=== PATIENT | male | born 1970 | race Asian ===

== ENCOUNTER 2020-10-04 10:06 | Emergency (ER) | payer OTHER, SELFPAY ==
--- NOTE | ~2020-10-04 | XR_ITS ---
EXAMINATION: RIGHT SHOULDER, RIGHT ELBOW AND RIGHT HAND AND WRIST CLINICAL INFORMATION: Fall COMPARISON: None TECHNIQUE: 4 views of the right shoulder, 3 views of the right elbow and 4 views of the right hand and wrist FINDINGS: Right shoulder: Bone alignment is normal. No fracture or dislocation is seen. The glenohumeral joint is normal. There is mild arthritis at the acromioclavicular joint. Soft tissues are normal. Right elbow: Bone alignment is normal. No fracture or dislocation is seen. Joint spaces are normal. There is no joint effusion. There is a small osteophyte or thymic lesion seen at the lateral humeral condyle. Right hand and wrist: Bone alignment is normal. No acute fracture or dislocation is seen. There is a well-corticated ossification adjacent to the ulnar styloid, question representing an old ununited fracture versus accessory ossification center The joint spaces are normal. XR/XR shoulder RT min 2V IMPRESSION: No acute fracture or dislocation seen.
--- NOTE | ~2020-10-04 | CT_ITS ---
EXAMINATION: CT HEAD WITHOUT CONTRAST CLINICAL INFORMATION: Fall, right arm numbness. COMPARISON: None TECHNIQUE: Contiguous axial imaging was performed from the skull base to vertex without intravenous administration of contrast. Additional 2-D coronal and sagittal reformatted images are generated on the CT workstation and uploaded to PACS. This CT examination was performed using dose optimization techniques as appropriate, variously including the following: *Automated exposure control *Adjustment of mA and/or kV according to patient size (this includes techniques or standardized protocols for targeted exams where dose is matched to indication/reason for exam; i.e. extremities or head) *Use of iterative reconstruction technique DLP: 695 mGy-cm FINDINGS: There is no intracranial hemorrhage, hematoma, or extra-axial fluid collection. The ventricles are normal in size. There is no hydrocephalus, edema, or mass effect. The mccann-white matter differentiation appears symmetric. There is no visible acute territorial infarct or mass lesion. The calvarium appears intact. There is no pneumocephalus or orbital emphysema. The visualized sinuses and middle ears and mastoid air cells show no significant mucosal thickening. There are no air-fluid levels. CT/CT head/brain wo con IMPRESSION: Unremarkable noncontrast CT head.
--- NOTE | ~2020-10-04 | XR_ITS ---
EXAMINATION: RIGHT SHOULDER, RIGHT ELBOW AND RIGHT HAND AND WRIST CLINICAL INFORMATION: Fall COMPARISON: None TECHNIQUE: 4 views of the right shoulder, 3 views of the right elbow and 4 views of the right hand and wrist FINDINGS: Right shoulder: Bone alignment is normal. No fracture or dislocation is seen. The glenohumeral joint is normal. There is mild arthritis at the acromioclavicular joint. Soft tissues are normal. Right elbow: Bone alignment is normal. No fracture or dislocation is seen. Joint spaces are normal. There is no joint effusion. There is a small osteophyte or thymic lesion seen at the lateral humeral condyle. Right hand and wrist: Bone alignment is normal. No acute fracture or dislocation is seen. There is a well-corticated ossification adjacent to the ulnar styloid, question representing an old ununited fracture versus accessory ossification center The joint spaces are normal. XR/XR hand wrist RT IMPRESSION: No acute fracture or dislocation seen.
--- NOTE | ~2020-10-04 | XR_ITS ---
EXAMINATION: RIGHT SHOULDER, RIGHT ELBOW AND RIGHT HAND AND WRIST CLINICAL INFORMATION: Fall COMPARISON: None TECHNIQUE: 4 views of the right shoulder, 3 views of the right elbow and 4 views of the right hand and wrist FINDINGS: Right shoulder: Bone alignment is normal. No fracture or dislocation is seen. The glenohumeral joint is normal. There is mild arthritis at the acromioclavicular joint. Soft tissues are normal. Right elbow: Bone alignment is normal. No fracture or dislocation is seen. Joint spaces are normal. There is no joint effusion. There is a small osteophyte or thymic lesion seen at the lateral humeral condyle. Right hand and wrist: Bone alignment is normal. No acute fracture or dislocation is seen. There is a well-corticated ossification adjacent to the ulnar styloid, question representing an old ununited fracture versus accessory ossification center The joint spaces are normal. XR/XR elbow RT min 3V IMPRESSION: No acute fracture or dislocation seen.
--- NOTE | ~2020-10-04 | CT_ITS ---
EXAMINATION: CT CERVICAL SPINE WITHOUT CONTRAST CLINICAL INFORMATION: Fall, trauma, right arm numbness. COMPARISON: CT head noncontrast 10/04/2020. TECHNIQUE: Multidetector volumetric CT imaging of the cervical spine is performed without contrast in the axial plane. Additional 2D reformatted coronal and sagittal images are generated on the CT workstation and uploaded to PACS. This CT examination was performed using dose optimization techniques as appropriate, variously including the following: *Automated exposure control *Adjustment of mA and/or kV according to patient size (this includes techniques or standardized protocols for targeted exams where dose is matched to indication/reason for exam; i.e. extremities or head) *Use of iterative reconstruction technique DLP: 424 mGy-cm FINDINGS: There is no vertebral compression fracture, fracture line, spondylolisthesis, or prevertebral soft tissue swelling. The craniocervical junction appears normal. The odontoid appears intact. There is mild reversal upper to mid cervical lordosis. There are multilevel degenerative disc changes from C3 to C4 through C6-C7. There is bulky anterior bridging osteophyte at C5-C6. There is no apical pneumothorax. CT/CT cervical spine wo con IMPRESSION: 1. No acute bony abnormality or prevertebral soft tissue swelling. 2. Mild reversal cervical lordosis. Multilevel degenerative changes. Bulky anterior bridging osteophyte C5-C6.
[2020-10-04 10:56] VITALS: BP 120/72; PULSE 96; RESP 14; TEMP 36.8; O2SAT 99; BMI 23.5
--- NOTE | 2020-10-04 11:09 | ED_ITS ---
HPI - Extremity Problem General Chief complaint: Extremity Injury, Upper Stated complaint: shoulder/elbow/wrist injury- work related Time Seen by Provider: 10/04/20 11:03 Source: patient Mode of arrival: ambulatory Limitations: no limitations History of Present Illness HPI Narrative: 49yoM Related Data Allergies Allergy/AdvReac Type Severity Reaction Status Date / Time No Known Allergies Allergy Verified 10/04/20 10:54 [facility] Past Medical History Medical History (Updated 10/04/20 @ 10:58 by Kelly Anguiano) No known health problems Social History Social History Smoking Status: Current some day smoker Smoked in Last 30 Days: Yes Use of substances other than those prescribed or required for medical reasons: No Advance Directives: No Advance Directives Information Provided: No Physical Exam Vital Signs: Vital Signs: Last Vital Signs Temp 98.2 F 10/04/20 10:56 Pulse 96 10/04/20 10:56 Resp 14 10/04/20 10:56 BP 120/72 10/04/20 10:56 Pulse Ox 99 10/04/20 10:56 Body Mass Index 23.5
--- NOTE | 2020-10-04 11:17 | ED_ITS ---
HPI - Extremity Injury (Upper) General Chief Complaint: Extremity Injury, Upper Stated Complaint: shoulder/elbow/wrist injury- work related Time Seen by Provider: 10/04/20 11:03 Source: patient Mode of arrival: ambulatory Limitations: no limitations History of Present Illness HPI narrative: 49 year old male with no significant past medical history presenting to the ED after slipping and falling on ice hitting the cement landing on his right side while at work prior to arrival now with pain to right shoulder/right elbow/right forearm/right wrist and hand and he reports associated numbness to the 4th and 5th digit going up the ulnar aspect of the arm to the elbow. Denies head injury or loss of consciousness. Denies any symptoms prior to the fall. Denies any dizziness, headaches, neck pain/stiffness, chest pain, palpitations, shortness of breath or any other symptoms complaints or concerns at this time. 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) Severity: moderate Relieving factors: rest Exacerbating factors: movement of extremity Context: fall Associated symptoms: numbness Treatments prior to arrival: other (none) Related Data Previous Rx's Medication Instructions Recorded naproxen 500 mg PO BID PRN #10 tab 10/04/20 prednisone 40 mg PO DAILY 5 Days #10 tab 10/04/20 Allergies Allergy/AdvReac Type Severity Reaction Status Date / Time No Known Allergies Allergy Verified 10/04/20 10:54 Review of Systems Review of Systems: Constitutional : No changes in activity, No lethargy, No recent prior head injury, No agitation ENT/Mouth : No Ear Pain, No Nasal discharge/drainage Eyes: No Eye Pain, No Swelling, No Redness, No Foreign Body, No Vision Changes Cardiovascular : No Chest Pain, No SOB Respiratory : No Cough Gastrointestinal : No Nausea, No Vomiting, No abdominal Pain Genitourinary : No Dysuria, No Urinary Frequency, No Urinary Incontinence, No Urgency, No Flank Pain Musculoskeletal : + joint pain, No neck stiffness, No back pain/injury Skin : No lacerations Neuro : + Numbness, No unsteady gait, No Paresthesias, No Loss of Consciousness, No altered mental status, No Headache Yes all other systems are reviewed and are negative PMFSH Past Medical History Attestation statement: The following information was validated with the patient. Medical History No known health problems Social History Social History Smoking Status: Current some day smoker Smoked in Last 30 Days: Yes Use of substances other than those prescribed or required for medical reasons: No Advance Directives: No Advance Directives Information Provided: No Physical Exam Vital Signs: Vital Signs: Last Vital Signs Temp 98.2 F 10/04/20 10:56 Pulse 96 10/04/20 10:56 Resp 14 10/04/20 10:56 BP 120/72 10/04/20 10:56 Pulse Ox 99 10/04/20 10:56 Body Mass Index 23.5 vital signs have been reviewed as normal and appeared to be correct. Blood pressure normal. Heart rate normal. Respiration rate normal. Temperature normal. Oxygen saturation normal. Appearance: Alert. Oriented X3. No acute distress. Head: Normal external exam. Normocephalic. Atraumatic. No Solorzano signs noted. No raccoon eyes noted Eyes: PERRLA. EOMI. Conjunctiva and sclera normal. Eyelids normal. ENT: EAC normal. TM's Normal. Pharynx normal. Uvula midline. Moist mucous membranes. No trismus noted. No drooling noted. No muffled voice noted. Neck: Normal inspection. Neck supple. FROM. No adenopathy. Thyroid Normal. No meningeal signs. No neck mass noted. CVS: Normal heart rate and rhythm. Heart sound normal. No murmurs noted. Pulses normal throughout. Respiratory: No respiratory distress. Painless inspiration. Breath sounds normal. No wheezes/rales/rhonchi noted. Chest nontender. No accessory muscle usage noted or decreased air movement noted. Back: No CVA tenderness. Full range of motion noted. Skin: Skin warm and dry. Normal skin color. Normal skin turgor. No rashes/les ions/lacerations noted. Extremities: To right shoulder patient has mild tenderness to palpation at the AC joint and posteriorly. To right elbow patient is tender to palpation at the olecranon process. To right wrist/hand patient tender to palpation to ulnar aspect of the wrist and tenderness to palpation of last 2 digits. No obvious deformities noted to right shoulder/elbow/wrist/hand. Otherwise all other Extremities exhibit normal range of motion and nontender. Neuro: Oriented X 3. No motor deficit. No sensory deficit. Reflexes normal. Moving all extremities. No focal motor deficits. Cranial nerves II-XI intact bilaterally. Facial strength normal. Normal cognition. Speech normal. Gait normal. Strength 5/5 throughout. No pronator drift. No tremor noted. No fasciculations noted. No rigidity noted. Muscle tone normal throughout. No asterixis noted Course Course Course Narrative: 49 year old male with no significant past medical history presenting to the ED after slipping and falling on ice hitting the cement landing on his right side while at work prior to arrival now with pain to right shoulder/right elbow/right forearm/right wrist and hand and he reports associated numbness to the 4th and 5th digit going up the ulnar aspect of the arm to the elbow. - on exam patient has mild tenderness to palpation to right shoulder/right elbow/right hand and wrist. No obvious deformities noted. - due to patient reporting right arm numbness at the last 2 digits of the hand following the ulnar aspect up to the elbow although no tenderness to palpation to mid cervical or paracervical musculature. - will obtain a CT scan of brain/cervical spine, x-rays right shoulder/elbow/h and and wrist, I offered the patient symptomatic treatment although he declined at this time will re-evaluate. Procedures Orthopedic Splinting/Casting Injury #1: Side: right Upper Extremity Injury Location: upper arm Upper Extremity Immobilizer: sling/shoulder immobilizer MDM - Extremity Injury (Upper) Medical Records Attestation: I reviewed the patient's medical records. Imaging Data Right shoulder/right elbow/right hand and wrist x-rays: Attestation: I personally reviewed and interpreted this imaging study as follows: Radiologist's impression: FINDINGS: Right shoulder: Bone alignment is normal. No fracture or dislocation is seen. The glenohumeral joint is normal. There is mild arthritis at the acromioclavicular joint. Soft tissues are normal. Right elbow: Bone alignment is normal. No fracture or dislocation is seen. Joint spaces are normal. There is no joint effusion. There is a small osteophyte or thymic lesion seen at the lateral humeral condyle. Right hand and wrist: Bone alignment is normal. No acute fracture or dislocation is seen. There is a well-corticated ossification adjacent to the ulnar styloid, question representing an old ununited fracture versus accessory ossification center The joint spaces are normal. XR/XR elbow RT min 3V IMPRESSION: No acute fracture or dislocation seen. CT scan of brain without contrast: Attestation: I personally reviewed and interpreted this imaging study as follows: Radiologist's impression: FINDINGS: There is no intracranial hemorrhage, hematoma, or extra-axial fluid collection. The ventricles are normal in size. There is no hydrocephalus, edema, or mass effect. The mccann-white matter differentiation appears symmetric. There is no visible acute territorial infarct or mass lesion. The calvarium appears intact. There is no pneumocephalus or orbital emphysema. The visualized sinuses and middle ears and mastoid air cells show no significant mucosal thickening. There are no air-fluid levels. CT/CT head/brain wo con IMPRESSION: Unremarkable noncontrast CT head. Cervical spine CT: Attestation: I personally reviewed and interpreted this imaging study as follows: Radiologist's impression: FINDINGS: There is no intracranial hemorrhage, hematoma, or extra-axial fluid collection. The ventricles are normal in size. There is no hydrocephalus, edema, or mass effect. The mccann-white matter differentiation appears symmetric. There is no visible acute territorial infarct or mass lesion. The calvarium appears intact. There is no pneumocephalus or orbital emphysema. The visualized sinuses and middle ears and mastoid air cells show no significant mucosal thickening. There are no air-fluid levels. CT/CT head/brain wo con IMPRESSION: Unremarkable noncontrast CT head. Discharge Plan Discharge Clinical Impression: Sprain and strain of wrist, Tingling of right upper extremity, Sprain and strain of right hand, Work related injury Sprain of right shoulder Qualifiers: Encounter type: initial encounter Shoulder sprain type: unspecified sprain Qualified Code(s): S43.401A - Unspecified sprain of right shoulder joint, initial encounter Sprain of right elbow Qualifiers: Encounter type: initial encounter Qualified Code(s): S53.401A - Unspecified sprain of right elbow, initial encounter Fall from slipping on ice Qualifiers: Encounter type: initial encounter Qualified Code(s): W00.9XXA - Unspecified fall due to ice and snow, initial encounter Patient Disposition: Home, Self-Care Instructions: Sprain (ED), How to Use a Sling (ED), Fall Prevention (ED) Prescriptions: New prednisone 20 mg tablet 40 mg PO DAILY 5 Days Qty: 10 RF: 0 naproxen 500 mg tablet 500 mg PO BID PRN (Reason: pain) Qty: 10 RF: 0 Referrals: Shu Silva MD [Physician] - 2 weeks (If symptoms persist) Jazzy Medellin PA [Physician Equity Sales Assistant] - 2 days (work connection for your job work related injury ) Stand Alone Forms: Work/School Release Print Language: [place]
== END 2020-10-04 12:50 | disposition home or self-care (01) ==
PROVIDERS: Emergency Provider Emergency Medicine
DX: S63.501A Unspecified sprain of right wrist, initial encounter (principal); S66.911A Strain of unspecified muscle, fascia and tendon at wrist and hand level, right hand, initial encounter; R20.2 Paresthesia of skin; S63.91XA Sprain of unspecified part of right wrist and hand, initial encounter; S43.401A Unspecified sprain of right shoulder joint, initial encounter; S53.401A Unspecified sprain of right elbow, initial encounter; W00.0XXA Fall on same level due to ice and snow, initial encounter; F17.200 Nicotine dependence, unspecified, uncomplicated; Y93.89 Activity, other specified; Y92.9 Unspecified place or not applicable; Y99.0 Civilian activity done for income or pay
CPT/HCPCS: 70450; 72125; 73030; 73080; 73110; 73130; 99283; 99284

== ENCOUNTER → 2020-10-06 09:32 | Outpatient (BNVA) | payer OTHER, SELFPAY | PROVIDERS: Visit Provider Physician Assistant Medical | DX: S46.911A Strain of unspecified muscle, fascia and tendon at shoulder and upper arm level, right arm, initial encounter (principal); S66.911A Strain of unspecified muscle, fascia and tendon at wrist and hand level, right hand, initial encounter; S50.01XA Contusion of right elbow, initial encounter; W01.0XXA Fall on same level from slipping, tripping and stumbling without subsequent striking against object, initial encounter; G56.00 Carpal tunnel syndrome, unspecified upper limb | CPT/HCPCS: 99202; 99213 ==

== ENCOUNTER → 2020-10-13 10:11 | Outpatient (BNVA) | payer OTHER, SELFPAY | PROVIDERS: Visit Provider Physician Assistant Medical | DX: S69.81XA Other specified injuries of right wrist, hand and finger(s), initial encounter (principal); W01.0XXA Fall on same level from slipping, tripping and stumbling without subsequent striking against object, initial encounter; R20.2 Paresthesia of skin | CPT/HCPCS: 99213 ==

== ENCOUNTER 2020-10-20 09:29 | Outpatient (REF) | payer OTHER, SELFPAY ==
--- NOTE | ~2020-10-20 | MR_ITS ---
EXAMINATION: MR WRIST WITHOUT CONTRAST, RIGHT CLINICAL INFORMATION: Fall, pain, limited range of motion, paresthesias COMPARISON: X-ray 10/04/2020 TECHNIQUE: MRI of the wrist was performed using routine sequences on a high-field scanner. FINDINGS: BONE/JOINTS: Small ossification adjacent to the ulnar styloid process, without evidence of marrow edema, which may be related to old fracture versus accessory ossification center. Mild scaphoid-trapezium arthritis, with mild edema in the distal scaphoid. Scattered mild arthritic changes, such as small cyst/edema in the proximal capitate, proximal hamate, pisiform. No evidence of no acute fracture. 13 x 8 x 3 mm (long, transverse, AP) cystic focus along the volar radial aspect at the level of the scaphoid, probable ganglion cyst. MUSCLE/TENDONS: Tendons are intact. No evidence of tenosynovitis. LIGAMENTS: Increased signal in the scapholunate ligament, appearing degenerative. Mild fraying of the dorsal and volar components of the ligament. Degeneration and proximal surface partial tearing in the triangular fibrocartilage, and the volar radioulnar ligament, with increased signal extending to the proximal surface. Increased signal in the dorsal radioulnar ligament, which may be degenerative versus intrasubstance tearing.. There is increased signal and ill-definition of the ulnar attachments of the TFCC, which could reflect sprain or partial tear. There is mild edema in the ulna styloid process. MEDIAN NERVE: Within normal limits. MR/MR wrist RT wo con IMPRESSION: 1. Mild arthritis in the wrist joint, including mild scaphoid-trapezium arthritis, as detailed above. 2. Chronic appearing ossification adjacent to the ulna styloid process, which may be related to old trauma versus accessory ossification center. No acute fracture is seen. 3. Cyst measuring 13 x 8 x 3 mm along the volar radial aspect at the level of the scaphoid, probable ganglion cyst. 4. Scapholunate ligament degeneration with fraying. 5. Findings raise concern for degeneration and proximal surface partial tearing in the triangular fibrocartilage and the volar radioulnar ligament. Signal in the dorsal radioulnar ligament may be degenerative versus intrasubstance tearing. Findings in the ulnar attachments of the TFCC may reflect sprain or partial tearing. Mild ulnar styloid process edema.
== END 2020-10-20 09:30 | disposition home or self-care (01) ==
LOC: HO.MRI 09:29
PROVIDERS: Visit Provider Internal Medicine
DX: M25.531 Pain in right wrist (principal)
CPT/HCPCS: 73221

== ENCOUNTER → 2020-10-25 08:32 | Outpatient (BNVA) | payer OTHER, SELFPAY | PROVIDERS: Visit Provider Orthopaedic Surgery | DX: R20.0 Anesthesia of skin (principal); R20.2 Paresthesia of skin; M25.531 Pain in right wrist | CPT/HCPCS: 99202 ==

== ENCOUNTER 2020-11-25 09:07 | Outpatient (REF) | payer OTHER, SELFPAY ==
--- NOTE | 2020-11-25 09:15 | EMG_ITS ---
Right median and ulnar motor and sensory studies were performed. Right radial sensory study was performed and paraspinal muscles were tested with a needle. IMPRESSION: Mild right ulnar neuropathy across cubital tunnel. MD JEAN-PIERRE Maki/CORKY / [id number]
== END 2020-11-25 09:08 | disposition home or self-care (01) ==
LOC: HO.NEURO 09:07
PROVIDERS: PCP Internal Medicine; Visit Provider Physician Assistant Medical
DX: M25.531 Pain in right wrist (principal)
CPT/HCPCS: 95886; 95909

== ENCOUNTER → 2020-12-07 08:50 | Outpatient (BNVA) | payer OTHER, SELFPAY | PROVIDERS: PCP Internal Medicine; Visit Provider Orthopaedic Surgery | DX: G56.21 Lesion of ulnar nerve, right upper limb (principal); M25.531 Pain in right wrist | CPT/HCPCS: 99212 ==

== ENCOUNTER → 2021-01-19 09:09 | Outpatient (BNVA) | payer OTHER, SELFPAY | PROVIDERS: Visit Provider Orthopaedic Surgery | DX: G56.21 Lesion of ulnar nerve, right upper limb (principal); M25.531 Pain in right wrist | CPT/HCPCS: 99212 ==

== ENCOUNTER 2021-01-27 10:54 | Day surgery (SDC) | payer OTHER, SELFPAY ==
--- NOTE | 2020-12-28 10:17 | P.CONAN_ITS ---
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
--- NOTE | 2021-01-26 09:48 | P.CONAN_ITS ---
Documented by User: Joanne Murphy 01/31/21 15:35 HPI - Anesthesia Eval Consult details Narrative: 50yo M for Right Transposition Cubital Tunnel Release PMFSH Active Problems Active Problems: All Active Problems (Updated 12/07/20 @ 10:05 by Karen Alvarez MD) Cubital tunnel syndrome on right (Acute) Right wrist pain (Acute) Numbness and tingling in right hand (Acute) Past Medical History Medical History No known health problems Surgical History Surgical History (Updated 01/27/21 @ 11:39 by Jackelyn Wren, RN) Hx of left knee surgery Social History Social History (Updated 01/19/21 @ 09:47 by Cathie Langley) Patient Tobacco Use Status: Current everyday Tobacco user Cigarettes Per Day: 3 Current occupational status: employed 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 Allergies Allergy/AdvReac Type Severity Reaction Status Date / Time No Known Allergies Allergy Verified 01/27/21 11:39 Exam Exam Date and Time: January 26, 2021 0948 Assessment and Plan Assessment Anesthesia Assessment: Chart Reviewed Documented by User: Dusty Craig MD 02/02/21 10:34 PMFSH Past Medical History Medical History No known health problems Surgical History Surgical History (Updated 01/27/21 @ 11:39 by Jackelyn Wren, RN) Hx of left knee surgery Social History Social History (Updated 01/19/21 @ 09:47 by Cathie Langley) Patient Tobacco Use Status: Current everyday Tobacco user Cigarettes Per Day: 3 Current occupational status: employed 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
[2021-01-27] VITALS (8 sets, daily range): BP systolic 97–114; BP diastolic 50–67; PULSE 73–95; RESP 15–20; TEMP 36.2–36.3; O2SAT 94–98; BMI 23.5
--- NOTE | 2021-01-27 12:46 | PC.NURSE ---
FRESH KITTEN SCRATCH TO RT UPPER ARM FROM YESTERDAY. [address] JACKSON. SPOKE WITH MD OVER PHONE AND STATED TO PROCEED WITH IV PLACEMENT . OK TO PROCEED WITH SURGERY AT PRESENT BUT WILL EVALUATE AT BEDSIDE AGAIN.
[2021-01-27] MEDS: Lactated Ringers 1,000 ML 100 ML IVCONT (12:49)
--- NOTE | 2021-01-27 14:40 | MHC.SHP ---
Pre-Procedural Eval Section B Chief Complaint: Right cubital tunnel syndrome Allergies: Allergies Allergy/AdvReac Type Severity Reaction Status Date / Time No Known Allergies Allergy Verified 01/27/21 11:39 Plan I have reviewed the history and physical and performed a pertinent physical examination on my patient. No changes have occurred unless specified.
--- NOTE | 2021-01-27 14:41 | W.PM.OPN ---
Operative Note Operative Note Date of Service: 01/27/21 Narrative: Operative Note Narrative: Preop diagnosis: 1. Right Cubital tunnel syndrome with dense numbness Postop diagnosis: Same Procedure: 1. Right Cubital Tunnel Release Surgeon: Karen Alvarez MD Anesthesia: General Findings: Thickening about the ulnar nerve with an hourglass deformity at the cubital tunnel Implants: none Tourniquet time: 16 minutes EBL: 5.0 ml Specimen: none Drains: None Complications: None Disposition: Brought to the recovery room in stable condition Plan: Follow-up in 10-14 days for wound check, and suture removal Indications: The patient is 50 years old man with right cubital tunnel syndrome with dense numbness . The risks and benefits of operative treatment, including but not limited to risk of damage to blood vessels, nerves, tendons, infection, recurrence, persistent pain or numbness, incomplete resolution of preoperative symptoms, or need for further surgery were discussed with the patient and they wished to proceed with surgery. Procedure: Once consent was obtained patient was brought back to the operating suite and placed in the operating table in a supine position. Perioperative antibiotics and anesthesia was administered by the anesthesia team. The limb was prepped and draped in a standard surgical fashion, and a sterile tourniquet applied to the proximal aspect of the right upper extremity. The limb was elevated exsanguinated with Esmarch bandage and the tourniquet inflated to 250 mm of mercury for a total tourniquet time of 16 minutes. A 6 cm gently curved but longitudinally oriented incision was made centered over the cubital tunnel of the right upper extremity. Incision was made through the skin to the subcutaneous tissues using a # 15 Blade. I then dissected down to the level of the medial epicondyle and the cubital tunnel using tenotomy scissors. Care was taken to protect the lateral antebrachial cutaneous nerve. The ulnar nerve was identified just posterior to the medial intermuscular septum. Small vessel loop was passed behind the ulnar nerve and used to apply gentle traction to facilitate our release. The ulnar nerve was released in a proximal to distal direction using tenotomy in iris scissors while directly visualizing and protecting the ulnar nerve. Thickening was appreciated about the ulnar nerve as it passed through the cubital tunnel. There was also some narrowing of the ulnar nerve within the cubital tunnel. The ulnar nerve was assessed as I passed the elbow through full flexion and extension and was found to remain stable within its groove. At this point the tourniquet was deflated and hemostasis obtained with a brief period of local pressure and bipolar electrocautery. The wound was copiously irrigated with normal saline. The subcutaneous layer was closed with 4-0 Vicryl suture, and the skin edges were reapproximated with 5-0 nylon suture. The wound was infiltrated with some 1% lidocaine with epinephrine for postop pain control and sterile dressings and a posterior splint was applied. The patient appears to have tolerated the procedure well and with no complications. All digits were well vascularized conclusion of the case.
== END 2021-01-27 15:55 | disposition home or self-care (01) ==
PROVIDERS: Visit Provider Orthopaedic Surgery
PROC: (CPT 64718; principal; 2021-01-27 13:10)
DX: G56.21 Lesion of ulnar nerve, right upper limb (principal); F17.210 Nicotine dependence, cigarettes, uncomplicated; M25.531 Pain in right wrist; Z87.828 Personal history of other (healed) physical injury and trauma; Z91.81 History of falling
CPT/HCPCS: 64718; J0690; J1100; J2250; J2405; J3010

== ENCOUNTER → 2021-02-07 09:24 | Outpatient (BNVA) | payer OTHER, SELFPAY | PROVIDERS: Visit Provider Orthopaedic Surgery | DX: G56.21 Lesion of ulnar nerve, right upper limb (principal); M25.531 Pain in right wrist | CPT/HCPCS: 99212 ==

== ENCOUNTER → 2021-03-21 10:41 | Outpatient (BNVA) | payer OTHER, SELFPAY | PROVIDERS: Visit Provider Orthopaedic Surgery | DX: G56.21 Lesion of ulnar nerve, right upper limb (principal) | CPT/HCPCS: 99212 ==

== ENCOUNTER → 2021-04-27 09:26 | Outpatient (BNVA) | payer OTHER, SELFPAY | PROVIDERS: Visit Provider Orthopaedic Surgery | DX: G56.21 Lesion of ulnar nerve, right upper limb (principal); M25.531 Pain in right wrist | CPT/HCPCS: 99212 ==

== ENCOUNTER → 2021-05-25 09:16 | Outpatient (BNVA) | payer OTHER, SELFPAY | PROVIDERS: Visit Provider Orthopaedic Surgery | DX: G56.21 Lesion of ulnar nerve, right upper limb (principal); R20.0 Anesthesia of skin; R20.2 Paresthesia of skin; F17.210 Nicotine dependence, cigarettes, uncomplicated | CPT/HCPCS: 99212 ==

== ENCOUNTER → 2021-06-29 09:44 | Outpatient (BNVA) | payer OTHER, SELFPAY | PROVIDERS: Visit Provider Physician Assistant | DX: G56.21 Lesion of ulnar nerve, right upper limb (principal) | CPT/HCPCS: 99212 ==

== ENCOUNTER → 2021-09-07 10:23 | Outpatient (BNVA) | payer OTHER, SELFPAY | PROVIDERS: Visit Provider Physician Assistant | DX: Z48.811 Encounter for surgical aftercare following surgery on the nervous system (principal) | CPT/HCPCS: 99212 ==

== ENCOUNTER → 2021-10-19 09:39 | Outpatient (BNVA) | payer OTHER, SELFPAY | PROVIDERS: Visit Provider Orthopaedic Surgery | DX: R20.0 Anesthesia of skin (principal); R20.2 Paresthesia of skin; G56.21 Lesion of ulnar nerve, right upper limb | CPT/HCPCS: 99212 ==